=== PATIENT | female | born 1955 | race Caucasian/White ===

== ENCOUNTER 2020-11-17 09:37 | Outpatient (CLI) | payer BC | END 2020-11-17 09:38 | disposition home or self-care (01) | LOC: BICMAMMO 09:37 | PROVIDERS: ATTEND Internal Medicine Rheumatology | DX: M81.0 Age-related osteoporosis without current pathological fracture (principal); M25.522 Pain in left elbow; M85.89 Other specified disorders of bone density and structure, multiple sites | CPT/HCPCS: 77080 ==